=== PATIENT | male | born 1955 | race Caucasian/White ===

== ENCOUNTER 2024-08-26 19:38 | Inpatient (IN) | payer MEDICARE, MEDICAID ==
[~2024-08-26] VITALS: Ht 188 cm; Wt 91.2 kg
[2024-08-27] MEDS ORDERED: HALOPERIDOL 5 MG TABLET PO PRN (18:15)
[2024-08-27] MEDS ORDERED: LORazepam 1 MG TABLET PO PRN (18:15)
[2024-08-27 18:43] VITALS: BP 141/78; PULSE 81; RESP 17; TEMP 98; O2SAT 99
[2024-08-27] MEDS: INFLUENZA VIRUS VACCINE TVS (6MO+) 2024-25/PF 45 MCG/0.5 ML SYRINGE IM. ONE (20:45)
[2024-08-27] MEDS: PNEUMOCOCCAL VACCINE POLYVALENT 0.5 ML SYRINGE [PPSV23] IM. ONE (20:45)
[2024-08-27] MEDS ORDERED: ONDANSETRON 4 MG TABLET PO PRN (21:00)
[2024-08-27] MEDS ORDERED: LOPERAMIDE HCL 2 MG CAPSULE PO PRN (21:00)
[2024-08-27] MEDS ORDERED: PETROLATUM,WHITE 28 GM JELLY TP PRN (21:00)
[2024-08-27] MEDS ORDERED: GuaiFENesin/D-METHORPHAN [SUGAR-FREE] 200-20MG/10 ML SYRUP UDCUP PO PRN (21:00)
[2024-08-27] MEDS ORDERED: NICOTINE 14 MG/24 HOUR PATCH TD PRN (21:00)
[2024-08-27] MEDS ORDERED: MAGNESIUM HYDROXIDE SUSPENSION 30 ML UDCUP PO PRN (21:00)
[2024-08-27] MEDS ORDERED: DOCUSATE SODIUM 100 MG CAPSULE PO PRN (21:00)
[2024-08-27] MEDS ORDERED: IBUPROFEN 400 MG TABLET PO PRN (21:00)
[2024-08-27] MEDS ORDERED: ALBUTEROL SULFATE HFA 90 MCG/PUFF 8 GM INHALER IH PRN (21:00)
[2024-08-27] MEDS ORDERED: ACETAMINOPHEN 325 MG TABLET PO PRN (21:00)
[2024-08-27] MEDS ORDERED: CloNIDine HCL 0.1 MG TABLET PO PRN (21:00)
[2024-08-27] MEDS ORDERED: MAG HYDROX/ALUMINUM HYD/SIMETH ES 30 ML SUSPENSION UDCUP PO PRN (21:00)
[2024-08-28 08:10] VITALS: BP 114/72; PULSE 70; RESP 16; TEMP 97.6; O2SAT 95
[2024-08-28 09:17] LABS: BASOPHILS % (AUTO) 0.7 % (0.0-2.0); EOSINOPHILS % (AUTO) 0.9 % (1.0-6.0); HEMOGLOBIN 13.9 g/dL (13.5-17.5); LYMPHOCYTES # (AUTO) 1.5 K/uL (1.0-4.8); LYMPHOCYTES % (AUTO) 18.3 % (22.0-44.0); MEAN CORPUSCULAR HGB CONC 33.9 G/dL (31.0-37.0); MEAN CORPUSCULAR VOLUME 92 fL (80-100); MONOCYTES # (AUTO) 0.6 K/uL (0.1-1.0); MONOCYTES % (AUTO) 7.1 % (2.0-9.0); NEUTROPHILS # (AUTO) 6.1 K/uL (1.8-7.7); PLATELET COUNT (AUTO) 287 K/uL (150-450); RED BLOOD CELL COUNT(AUTO) 4.48 MIL/uL (4.50-5.90); RED CELL DISTRIBUTION WIDTH 13.8 % (11.5-14.5); WHITE BLOOD COUNT (AUTO) 8.4 K/uL (4.5-11.0)
[2024-08-28 09:27] LABS: ALBUMIN 3.3 g/dL (3.4-5.0); BILIRUBIN,TOTAL 0.5 mg/dL (0.1-1.0); CALCIUM, TOTAL 9.5 mg/dL (8.8-10.5); CHOL/HDL RATIO 4.3 (4.2-7.3); CREATININE 1.27 mg/dL (0.60-1.30); FREE T4 (FREE THYROXINE) 0.76 ng/dL (0.76-1.46); POTASSIUM 4.8 mmol/L (3.5-5.1); THYROID STIMULATING HORMONE 7.47 uIU/mL (0.36-3.74); TOTAL PROTEIN, SERUM 7.8 g/dL (6.4-8.2)
[2024-08-28 09:35] LABS: HEMOGLOBIN A1C 5.4 % (3.8-5.6)
[2024-08-28] MEDS: QUEtiapine FUMARATE 25 MG TABLET PO SCH (12:18)
[2024-08-28] MEDS: DIVALPROEX SODIUM 250 MG DR TABLET PO SCH (12:18)
[2024-08-28] MEDS: ClonazePAM 0.5 MG TABLET PO SCH (12:19)
[2024-08-28] MEDS: MIRTAZAPINE 15 MG TABLET PO SCH (21:34)
[2024-08-28] MEDS: TraZODone HCL 50 MG TABLET PO SCH (21:34)
[2024-08-28 23:45] VITALS: RESP 16
[2024-08-29] MEDS: ZOLPIDEM TARTRATE 10 MG TABLET PO PRN (02:11)
[2024-08-29 08:03] VITALS: BP 111/67; PULSE 61; RESP 18; TEMP 97.3; O2SAT 98
[2024-08-29 20:41] VITALS: BP 105/62; PULSE 80; RESP 18; TEMP 97.6; O2SAT 98
[2024-08-30 08:48] LABS: APPEARANCE,URINE CLEAR (CLEAR); BILIRUBIN,URINE NEGATIVE (NEGATIVE); COLOR,URINE LIGHT YELLOW (YELLOW); GLUCOSE, URINE (UA) NEGATIVE (NEGATIVE); KETONES,URINE NEGATIVE (NEGATIVE); LEUKOCYTE ESTERASE ,URINE NEGATIVE (NEGATIVE); NITRATE,URINE NEGATIVE (NEGATIVE); OCCULT BLOOD,URINE NEGATIVE (NEGATIVE); PROTEIN,URINE TRACE mg/dL (NEGATIVE); SPECIFIC GRAVITIY, URINE 1.023 (1.003-1.030); UROBILINOGEN,URINE <=1.0 mg/dL (<=1.0)
[2024-08-30 08:56] LABS: ALCOHOL, URINE DRUG SCREEN NEGATIVE (NEGATIVE); AMPHET/METH SCREEN,URINE NEGATIVE (NEGATIVE); BARBITURATE SCREEN, URINE NEGATIVE (NEGATIVE); BENZODIAZEPINES SCREEN,URINE NEGATIVE (NEGATIVE); CANNABINOID SCREEN,URINE NEGATIVE (NEGATIVE); COCAINE SCREEN,URINE NEGATIVE (NEGATIVE); METHADONE SCREEN, URINE NEGATIVE (NEGATIVE); OPIATE SCREEN,URINE NEGATIVE (NEGATIVE); PHENCYCLIDINE SCREEN,URINE NEGATIVE (NEGATIVE)
[2024-08-30 16:47] VITALS: BP 123/62; PULSE 80; RESP 17; TEMP 97.3; O2SAT 98
[2024-08-30 21:23] VITALS: BP 101/59; PULSE 78; RESP 18; TEMP 98.2; O2SAT 95
[2024-08-31 10:01] VITALS: BP 141/97; PULSE 60; RESP 17; TEMP 98.1; O2SAT 95
[2024-08-31 21:35] VITALS: BP 112/69; PULSE 88; RESP 18; TEMP 97.3; O2SAT 99
[2024-09-01 08:16] VITALS: RESP 17
[2024-09-01 20:10] VITALS: BP 113/58; PULSE 71; RESP 18; TEMP 97.8; O2SAT 95
[2024-09-02 08:00] VITALS: BP 112/62; PULSE 70; RESP 16; TEMP 97; O2SAT 98
[2024-09-02 20:05] VITALS: BP 107/60; PULSE 62; RESP 18; TEMP 97.8; O2SAT 95
[2024-09-03 20:11] VITALS: BP 100/63; PULSE 80; RESP 18; TEMP 98.3; O2SAT 95
[2024-09-04 08:00] VITALS: BP 118/70; PULSE 64; RESP 17; TEMP 96.7; O2SAT 98
== END 2024-09-04 11:15 | disposition home or self-care (01) | DRG 885 ==
LOC: B2X 08-27 18:03
PROVIDERS: ADMIT Psychiatry & Neurology Psychiatry; ATTEND Psychiatry & Neurology Psychiatry
PROC: GZHZZZZ Group Psychotherapy (ICD-10-PCS; principal; 2024-08-28)
PROC: GZ52ZZZ Individual Psychotherapy, Cognitive (ICD-10-PCS; 2024-08-28)
DX: F25.0 Schizoaffective disorder, bipolar type (principal); G47.00 Insomnia, unspecified; F41.9 Anxiety disorder, unspecified; E78.5 Hyperlipidemia, unspecified; R53.81 Other malaise; Z79.899 Other long term (current) drug therapy
CPT/HCPCS: 80053; 80061; 80164; 80307; 81003; 83036; 84439; 84443; 85025; 87081